=== PATIENT | female | born 2000 | race Hispanic/Latino ===

== ENCOUNTER 2022-09-02 06:09 | Emergency (ER) | payer OTHER ==
[~2022-09-02] VITALS: Ht 152.4 cm; Wt 63.5 kg
[2022-09-02 06:20] VITALS: O2SAT 100
[2022-09-02] MEDS ORDERED: KETOROLAC TROMETHAMINE 30 MG/ML VIAL IM STA (06:37)
[2022-09-02] MEDS ORDERED: NAPROXEN250 MG PO (07:26)
== END 2022-09-02 07:53 | disposition home or self-care (01) ==
LOC: ER 06:15
DX: R06.02 Shortness of breath (principal); R07.89 Other chest pain; V43.62XA Car passenger injured in collision with other type car in traffic accident, initial encounter; Y92.488 Other paved roadways as the place of occurrence of the external cause
CPT/HCPCS: 71045; 99283; J1885